=== PATIENT | male | born 1980 | race African-American/Black ===

== ENCOUNTER 2021-05-14 23:33 | Observation (INO) | payer OTHER, SELFPAY ==
[2021-05-15 02:54] VITALS: BMI 32.5
[2021-05-15] MEDS ORDERED: Morphine 2 MG/ML VIAL SLOW IVP PRN (03:08)
[2021-05-15] MEDS ORDERED: Ketorolac Tromethamine 30 MG/ML VIAL IVP PRN (03:09)
[2021-05-15] MEDS ORDERED: Morphine 4 MG/ML VIAL SLOW IVP PRN (03:09)
[2021-05-15] MEDS ORDERED: Ondansetron PF 4 MG/2 ML Vial IVP PRN (03:10)
[2021-05-15] MEDS ORDERED: Piperacillin/Tazobactam 3.375 GM in Sodium Chloride 0.9% 100 ML IVPB SCH ×2 (03:15→09:00)
[2021-05-15] MEDS: Sodium Chloride 0.9% 1,000 ML IV SCH ×2 (03:34→13:54)
[2021-05-15] MEDS ORDERED: traMADol HCl 50 MG TAB PO PRN (11:03)
[2021-05-15] MEDS ORDERED: Acetaminophen 500 MG TAB PO PRN (11:03)
[2021-05-15] MEDS ORDERED: Promethazine HCl 25 MG/ML VIAL IVPB PRN (11:30)
[2021-05-15] MEDS ORDERED: Ondansetron HCl/PF 4 MG/2 ML Vial IVP PRN (11:30)
[2021-05-15] MEDS ORDERED: Promethazine HCl 25 MG/ML VIAL IM PRN (11:30)
[2021-05-15] MEDS ORDERED: Meperidine HCl/PF 25 MG/ML VIAL SLOW IVP PRN (11:30)
[2021-05-15] MEDS ORDERED: Midazolam HCl 2 mg/2 ml Vial ONE (12:01)
[2021-05-15] MEDS ORDERED: Fentanyl 250 MCG/5 ML VIAL ONE (12:01)
[2021-05-15] MEDS ORDERED: Dexamethasone 20 MG/5 ML VIAL ONE (12:05)
[2021-05-15] MEDS ORDERED: Rocuronium Bromide 10 MG/ML (10ML VIAL) ONE (12:05)
[2021-05-15] MEDS ORDERED: Lidocaine 1% PF 5 ML VIAL ONE (12:05)
[2021-05-15] MEDS ORDERED: Glycopyrrolate 0.2 MG/ML 5 ML SYRINGE ONE ×2 (12:05)
[2021-05-15] MEDS ORDERED: PROPOFOL 200 MG/20 ML VIAL ONE (12:05)
[2021-05-15] MEDS ORDERED: PHENYLEPHRINE-NS 100 MCG/ML 10 ML SYRINGE ONE (12:05)
[2021-05-15] MEDS ORDERED: Ondansetron PF 4 MG/2 ML Vial ONE (12:05)
[2021-05-15 14:11] VITALS: BP 142/85; TEMP 97.9
[2021-05-20] MEDS ORDERED: Ibuprofen 600 MG TAB PO PRN (09:00)
== END 2021-05-15 17:17 | disposition home or self-care (01) ==
LOC: SJJU 23:33
PROVIDERS: ADMIT Specialist; ATTEND Specialist
PROC: 0DTJ4ZZ Resection of Appendix, Percutaneous Endoscopic Approach (ICD-10-PCS; principal; 2021-05-15)
DX: K35.30 Acute appendicitis with localized peritonitis, without perforation or gangrene (principal); K38.8 Other specified diseases of appendix; Z20.822 Contact with and (suspected) exposure to COVID-19
CPT/HCPCS: 88304; 96365; 96366; 96375; G0378; J1100; J1885; J2250; J2405; J2543; J2704; J3010; J3490